=== PATIENT | male | born 2000 | race Caucasian/White ===

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

== ENCOUNTER → 2020-07-18 18:10 | Outpatient (CLI) | payer OTHER, SELFPAY ==
[2020-04-17 15:37] VITALS: BMI 31.3
== END ==
PROVIDERS: PCP Family Medicine; Referring Provider Family Medicine; Visit Provider Family Medicine
DX: Z20.828 Contact with and (suspected) exposure to other viral communicable diseases (principal)
CPT/HCPCS: 87635; U0003

== ENCOUNTER → 2025-02-02 | Outpatient (CLI) | payer OTHER, SELFPAY ==
--- NOTE | 2025-02-02 09:05 | RAD_ITS ---
EXAM: Single and double contrast esophagram. CLINICAL HISTORY: Dysphagia. Evaluate for Zenker's diverticulum. COMPARISON: None. TECHNIQUE: Single and double contrast esophagram. Fluoroscopy time: 158 seconds. Dose: 38.9 mGy. FINDINGS: No evidence of Zenker's diverticulum or other diverticulum is seen. Normal esophageal motility is seen. No area of esophageal stenosis is noted. A widely patent gastroesophageal junction is seen. No esophageal mucosal abnormality is noted. A very small sliding-type hiatal hernia is noted. During the time of this examination, gastroesophageal reflux was not elicited. Almost limited views of the stomach and duodenum show no abnormality. RAD/Esophagus Dual Contrast IMPRESSION: 1. Very small sliding-type hiatal hernia. 2. No evidence of Zenker's diverticulum or other diverticular disease. Reading Location: [place] [address]
== END | disposition home or self-care (01) ==
PROVIDERS: Referring Provider Otolaryngology; Visit Provider Otolaryngology
DX: R13.14 Dysphagia, pharyngoesophageal phase (principal)
CPT/HCPCS: 74221